=== PATIENT | female | born 1985 ===

== ENCOUNTER → 2020-03-13 | Outpatient (CLI) | payer OTHER, SELFPAY | LOC: M LDO 09:05 | PROVIDERS: ATTEND Obstetrics & Gynecology | DX: O09.812 Supervision of pregnancy resulting from assisted reproductive technology, second trimester (principal); V49.50XA Passenger injured in collision with unspecified motor vehicles in traffic accident, initial encounter; Y92.410 Unspecified street and highway as the place of occurrence of the external cause; Z3A.23 23 weeks gestation of pregnancy | CPT/HCPCS: 76815; G0378; G0463 ==